=== PATIENT | male | born 1995 | race Caucasian/White ===

== ENCOUNTER 2022-07-10 16:23 | Emergency (ER) | payer MEDICAID ==
[~2022-07-10] VITALS: Ht 172.7 cm; Wt 141.0 kg
[2022-07-10 16:38] VITALS: BP 146/98
[2022-07-10] MEDS ORDERED: CEPH500C2 MT (17:17)
== END 2022-07-10 18:06 | disposition home or self-care (01) ==
LOC: ER 16:23
DX: L53.9 Erythematous condition, unspecified (principal); L03.113 Cellulitis of right upper limb
CPT/HCPCS: 99283

== ENCOUNTER 2023-01-04 15:32 | Emergency (ER) | payer MEDICAID ==
[~2023-01-04] VITALS: Ht 172.7 cm; Wt 136.0 kg
[~2023-01-04 15:32] MED LIST: CEPH500C2 MT
[2023-01-04 15:57] VITALS: BP 124/76
== END 2023-01-04 21:49 | disposition home or self-care (01) ==
LOC: ER 15:32
DX: H72.91 Unspecified perforation of tympanic membrane, right ear (principal)
CPT/HCPCS: 99281